=== PATIENT | female | born 2005 | race Two or more races ===

== ENCOUNTER 2024-03-06 17:05 | Inpatient (IN) | payer OTHER ==
[~2024-03-06] VITALS: Ht 154.9 cm; Wt 63.5 kg
[2024-03-06] MEDS ORDERED: BETAMETHASONE ACETATE,SOD PHOS 30 MG/5 ML ML IM STA (17:22)
[2024-03-06] MEDS ORDERED: RINGERS SOLUTION,LACTATED 1,000 ML IV SCH (17:30)
[2024-03-06] MEDS ORDERED: AMPICILLIN SODIUM 2,000 MG VIAL IV ONE (17:30)
[2024-03-06] MEDS ORDERED: PRENATAL TABLE1 EAC1 PO (17:31)
[2024-03-06 17:58] LABS: URINE BACTERIA 123.4 uL (0.0-1933); URINE EPITHELIAL CELLS 11.7 uL (0.0-38.8); URINE WBC 27.8 uL (0.0-23.2)
[2024-03-06 18:03] LABS: MEAN CORPUSCULAR HGB CONC 32.3 g/dl (32.0-36.0); PLATELET COUNT 331 K/uL (150-450); RED BLOOD COUNT 3.77 M/uL (4.00-6.00); RED CELL DISTRIBUTION WIDTH 20.3 % (11.5-14.5)
[2024-03-06 18:05] LABS: HEMATOCRIT 22.5 % (36.0-45.00); MEAN CELL VOLUME 59.7 fL (80.00-100.00); MEAN CORPUSCULAR HEMOGLOBIN 19.3 pg (27.00-32.0)
[2024-03-06 18:07] LABS: HEMOGLOBIN 7.3 g/dL (12.0-15.00)
[2024-03-06 18:08] LABS: PH,URINE 6.5 (5.0-8.0); URINE APPEARANCE Clear; URINE BILIRRUBIN Negative (NEGATIVE); URINE BLOOD Negative; URINE COLOR Yellow; URINE GLUCOSE Negative (NEGATIVE); URINE KETONE Negative (NEGATIVE); URINE LEUKOCYTE Small; URINE NITRATE Negative; URINE PROTEIN Negative (NEGATIVE); URINE RBC 0.4 uL (0.0-20.8)
[2024-03-06 18:11] LABS: INR 0.97; PARTIAL THROMBOPLASTIN TIME 27.3 SECONDS (22.0-34.0); PROTHROMBIN TIME 10.2 SECONDS (9.0-11.5)
[2024-03-06] MEDS ORDERED: NIFEDIPINE 30 MG TAB.SA.OSM PO SCH (18:15)
[2024-03-06 18:28] LABS: ALBUMIN 2.7 gm/dL (3.4-5.0); BILIRUBIN TOTAL 1.28 mg/dL (0.3-1.2); CALCIUM 8.5 mg/dL (8.5-10.1); CREATININE SERUM 0.37 mg/dL (0.55-1.02); GFR 222.65; GLOBULINA 3.7 G/DL (2.4-3.5); POTASSIUM 4.06 mEq/L (3.5-5.1); TOTAL PROTEIN 6.4 gm/dL (6.4-8.2)
[2024-03-06] MEDS ORDERED: SOD FERRIC GLUC COMPLX/SUCROSE 62.5 MG in 0.9 % SODIUM CHLORIDE 50 ML IV SCH (20:02)
[2024-03-07] MEDS ORDERED: AMPICILLIN SODIUM 1,000 MG VIAL IV SCH
[2024-03-07] MEDS ORDERED: ACETAMINOPHEN 500 MG GEL..CAP PO PRN (09:30)
[2024-03-07] MEDS ORDERED: ACETAMINOPHEN 160 MG/5 ML ML PO PRN (09:30)
[2024-03-07] MEDS ORDERED: BETAMETHASONE ACETATE,SOD PHOS 30 MG/5 ML ML IM NR (17:30)
[2024-03-08] MEDS ORDERED: AMPICILLIN SODIUM 1,000 MG VIAL ONE (11:04)
[2024-03-15] MEDS ORDERED: SOD FERRIC GLUC COMPLX/SUCROSE 62.5 MG in 0.9 % SODIUM CHLORIDE 50 ML IV SCH (09:00)
[2024-03-15 11:32] LABS: HEMATOCRIT 26.5 % (36.0-45.00); MEAN CORPUSCULAR HEMOGLOBIN 20.4 pg (27.00-32.0); MEAN CORPUSCULAR HGB CONC 32.3 g/dl (32.0-36.0); PLATELET COUNT 281 K/uL (150-450); RED BLOOD COUNT 4.16 M/uL (4.00-6.00); RED CELL DISTRIBUTION WIDTH 21.1 % (11.5-14.5)
[2024-03-15 11:33] LABS: HEMOGLOBIN 8.5 g/dL (12.0-15.00); MEAN CELL VOLUME 63.6 fL (80.00-100.00)
[2024-03-21] MEDS ORDERED: MAXFE CAPLET1 EAC1 PO (12:36)
[2024-03-21] MEDS ORDERED: Procardia Xl 30MG TA PO (12:36)
== END 2024-03-21 13:35 | disposition home or self-care (01) | DRG 833 ==
LOC: LDR 17:05 → OB/GYN 03-09 11:47
PROVIDERS: ADMIT Obstetrics & Gynecology; ATTEND Obstetrics & Gynecology
PROC: 4A1HXCZ Monitoring of Products of Conception, Cardiac Rate, External Approach (ICD-10-PCS; principal; 2024-03-06)
PROC: BY4FZZZ Ultrasonography of Third Trimester, Single Fetus (ICD-10-PCS; 2024-03-07)
PROC: BU4CZZZ Ultrasonography of Uterus and Ovaries (ICD-10-PCS; 2024-03-07)
DX: O60.03 Preterm labor without delivery, third trimester (principal); O26.893 Other specified pregnancy related conditions, third trimester; R10.2 Pelvic and perineal pain; O36.8130 Decreased fetal movements, third trimester, not applicable or unspecified; O26.843 Uterine size-date discrepancy, third trimester; Z3A.34 34 weeks gestation of pregnancy; Z20.822 Contact with and (suspected) exposure to COVID-19

== ENCOUNTER 2024-05-01 08:29 | Emergency (ER) | payer OTHER ==
[~2024-05-01] VITALS: Ht 157.5 cm; Wt 54.4 kg
[~2024-05-01 08:29] MED LIST: MAXFE CAPLET1 EAC1 PO; PRENATAL TABLE1 EAC1 PO; Procardia Xl 30MG TA PO
[2024-05-01 10:23] LABS: PH,URINE 5.5 (5.0-8.0); URINE BILIRRUBIN Negative (NEGATIVE); URINE BLOOD Large; URINE COLOR Yellow; URINE GLUCOSE Negative (NEGATIVE); URINE KETONE Trace (NEGATIVE); URINE LEUKOCYTE Moderate; URINE NITRATE Negative; URINE PROTEIN Trace (NEGATIVE)
[2024-05-01 10:25] LABS: URINE BACTERIA 99.5 uL (0.0-1933); URINE EPITHELIAL CELLS 35.5 uL (0.0-38.8); URINE RBC 5904.5 uL (0.0-20.8); URINE WBC 170.6 uL (0.0-23.2)
[2024-05-01 10:44] LABS: HEMATOCRIT 30.7 % (36.0-45.00); HEMOGLOBIN 10.3 g/dL (12.0-15.00); MEAN CELL VOLUME 74.5 fL (80.00-100.00); MEAN CORPUSCULAR HEMOGLOBIN 24.9 pg (27.00-32.0); MEAN CORPUSCULAR HGB CONC 33.4 g/dl (32.0-36.0); PLATELET COUNT 179 K/uL (150-450); RED BLOOD COUNT 4.12 M/uL (4.00-6.00)
[2024-05-01 10:45] LABS: URINE APPEARANCE CLEAR; URINE CAST 0.61 uL (0.0-1.40)
[2024-05-01 10:48] LABS: URINE TRICHOMONAS FEW
[2024-05-01 10:53] LABS: ANION GAP 9 (10.0-20.0); BLOOD UREA NITROGEN 3 mg/dL (7-18); BUN CREA RATIO 4 (7.0-25.0); CALCIUM 8.5 mg/dL (8.5-10.1); CARBON DIOXIDE 26 mEq/L (21-32); CHLORIDE 109 mmol/L (98-107); GFR 106.68; GLUCOSE FASTING 90 mg/dL (65-100); OSMOLALITY SERUM 277 MOSM/KG (275-295); POTASSIUM 3.47 mEq/L (3.5-5.1); SODIUM 141 mmol/L (136-145)
[2024-05-01 11:18] LABS: HCG QUANTITATIVE < 1 mUI/mL (1-3)
[2024-05-01 12:11] VITALS: BP 99/66; O2SAT 98
== END 2024-05-01 12:13 | disposition home or self-care (01) ==
LOC: ER 08:31
PROVIDERS: General Practice
DX: O73.0 Retained placenta without hemorrhage (principal)